=== PATIENT | female | born 1930 | race Caucasian/White ===

== ENCOUNTER 2019-10-24 07:28 | Emergency (ER) | payer MEDICARE ==
[2019-10-24] MEDS ORDERED: Lidocaine 2% PF 5 ML VIAL ONE ×2 (08:17→08:54)
[2019-10-24] MEDS ORDERED: Adacel (T-DAP) 0.5 ML SYRINGE ONE (08:20)
--- NOTE | 2019-10-24 11:14 | CT ---
CT CERVICAL SPINE: Date: 10/24/[address] of the cervical spine was done following trauma. FINDINGS: The sagittal view shows a congenital block fusion of the C5 and C6 vertebral bodies. There is mild an terior subluxation of C4 on C5 that appears to be secondary to severe facet arthritis. There is also disc space narrowing at C7-T1. The C1 to dens distance is normal and the soft tissues are normal in t hickness. No acute fracture seen at any cervical level. Findings by level follow: C1-C2: No acute findings. C2-C3: No acute findings. Mild facet arthritis. C3-C4: Severe bilateral foraminal stenosis with severe bilateral facet arthritis. There is no spinal stenosis. C4-C5: Severe right foraminal stenosis with severe right facet arthritis. C5-C6: No acute findings. C6-C7: Moderate right foraminal narrowing due to osteophytes. C7-T1: No acute findings. T1-T2: No acute findings. T2-T3: No acute findings. The lung apices are clear. The patient's thyroid gland, particularly right lobe, is inhomogeneous and slightly larger than the left. Ultrasound would be needed to tell if there is any focal pathology, b ut the utility of doing so at this patient's age probably does not exist. An incidental finding are some bony fragments in the left TM joint. See CT of the face for further co mment. IMPRESSION: 1. No acute traumatic findings in the cervical spine. 2. Congenital block vertebra C5-C6. 3. Anterior subluxation C4 on C5 due to facet arthritis. 4. Severe degenerative facet arthritis throughout. Findings discussed with Dr. Remy at 0809 hours on 10/24/2019. CODE CR. POS: HOME
--- NOTE | 2019-10-24 11:16 | CT ---
CT OF THE BRAIN WITHOUT CONTRAST: Date: 10/24/[address] shows normal size ventricles for age and atrophy. There is some patchy hypolucency t hroughout the deep white matter consistent with chronic microvascular ischemia. No parenchymal hemorr yoselyn or extra-axial hematoma seen. There were no findings of an acute stroke, mass, or edema. Small a cute strokes would be missed against the background of ischemic change. The skull appears intact. The paranasal sinuses are clear and there is no air fluid level in the sphenoid sinus. IMPRESSION: Chronic ischemic changes, but no acute intracranial findings. Report called to Dr. Remy at 0809 on 10/24/2019. CODE CR. POS: HOME
--- NOTE | 2019-10-24 11:20 | CT ---
CT FACIAL BONES: Date: 10/24/[address] of facial bones performed following trauma. FINDINGS: No major fracture seen around the bones of the face. The paranasal sinuses are clear. There are a few small irregularities at the tip of the nasal bones that could represent very tiny avulsions. There a re inconsequential, even if real. The zygomatic arches and orbital rims appear intact, as does the ma ndible. The retroorbital areas appear normal. Attention is drawn to the left TM joint. There are some bony fragments associated with this joint, th ough their margins seem somewhat smooth. I would lean more towards this being due to old trauma than new, but the findings should be correlated with current symptoms and exam. IMPRESSION: 1. No major fracture identified. There are areas of soft tissue swelling over the patient's forehead . 2. A few bony irregularities at the tip of the nasal bones that could conceivably be tiny avulsions, but are not major fractures. 3. Bony fragments associated with the mandibular fossa of the left TM joint. Because their edges are somewhat smooth, it is more likely due to old trauma than new. Correlate with clinical exam. Findings discussed with Dr. Remy at 0809 hours on 10/24/2019. CODE CR. POS: HOME
--- NOTE | 2019-10-24 11:21 | RAD ---
RIGHT KNEE 3 VIEWS: Date: 10/24/2019 No fracture or joint effusion seen. All bony structures appear intact. Arthritic changes are present but minimal. IMPRESSION: No acute bony findings. POS: HOME
--- NOTE | 2019-10-24 11:23 | RAD ---
RIGHT FEMUR: Date: 10/24/2019 AP and lateral views show no major fracture. The hips appear intact with no fracture or dislocation e vident. The adjacent pubic ring appears intact. There is considerable soft tissue swelling anterior t o the distal femur near the patella, but the underlying bones appear intact. There does not appear to be a joint effusion at the knee. A small lucency just deep to the cortex of the lesser trochanter is probably not acute. Even if so, it would represent a minimal injury of no significant importance. IMPRESSION: No acute bony findings. POS: HOME
== END 2019-10-24 09:38 | disposition home or self-care (01) ==
LOC: BURERS 07:28
DX: S81.011A Laceration without foreign body, right knee, initial encounter (principal); S01.21XA Laceration without foreign body of nose, initial encounter; S51.011A Laceration without foreign body of right elbow, initial encounter; Z23 Encounter for immunization; W01.198A Fall on same level from slipping, tripping and stumbling with subsequent striking against other object, initial encounter
CPT/HCPCS: 12011; 12034; 70450; 70486; 72125; 90471; 90715; J2001